=== PATIENT | female | born 1975 | race Caucasian/White ===

== ENCOUNTER 2022-07-12 05:44 | Day surgery (SDC) | payer BC, OTHER ==
[2022-07-07 16:20] VITALS: BMI 29.9
--- NOTE | 2022-07-11 15:09 | P.GSHP ---
History of Present Illness H&P Date: 07/11/22 47 yo female with a painful left renal stone in the left renal pelvis who comes for eswl. Alternatives have been discussed. She has previous eswl in 2015 - Constitutional Constitutional: Denies chills, Denies fever - EENT Eyes: denies blurred vision, denies pain Ears, nose, mouth and throat: Denies headache, Denies sore throat - Cardiovascular Cardiovascular: Denies chest pain, Denies shortness of breath - Respiratory Respiratory: Denies cough, Denies 7 - Gastrointestinal Gastrointestinal: Denies abdominal pain, Denies diarrhea, Denies nausea, Denies vomiting - Genitourinary (Female) Genitourinary: Denies dysuria, Denies hematuria - Genitourinary (Male) Genitourinary: Denies dysuria, Denies hematuria - Musculoskeletal Musculoskeletal: Denies myalgias - Integumentary Integumentary: Denies pruritus, Denies rash - Neurological Neurological: Denies numbness, Denies weakness - Psychiatric Psychiatric: Denies anxiety, Denies depression - Endocrine Endocrine: Denies fatigue, Denies weight change Past Medical History Past Medical History: Hypertension Additional Past Medical History / Comment(s): PAST HISTORY -HYPERTENSION, KIDNE Y STONE, History of Any Multi-Drug Resistant Organisms: None Reported Additional Past Surgical History / Comment(s): LITHOTRIPSY, COLONOSCOPY Past Anesthesia/Blood Transfusion Reactions: No Reported Reaction Smoking Status: Former smoker - Past Family History Mother Family Medical History: No Reported History Medications and Allergies Home Medications Medication Instructions Recorded Confirmed Type Ibuprofen [Motrin] 800 mg PO Q8HR PRN 04/14/15 07/07/22 History Acetaminophen Tab [Tylenol Tab] 1,000 mg PO Q6HR PRN 07/07/22 07/07/22 History HYDROcodone/APAP 7.5-325MG [[place] 1 tab PO Q4H PRN 07/07/22 07/07/22 History 7.5-325] Ketorolac [Toradol] 10 mg PO Q6HR PRN 07/07/22 07/07/22 History Multivitamins, Thera [Multivitamin 1 tab PO DAILY 07/09/22 07/09/22 History (formulary)] Allergies Allergy/AdvReac Type Severity Reaction Status Date / Time No Known Allergies Allergy Verified 07/07/22 15:52 Surgical - Exam - General well developed, well nourished, no distress - Eyes normal ocular movement, no icteric - ENT no hearing loss, no congestion - Neck no masses, trachea midline - Respiratory normal respiratory effort, clear to auscultation - Abdomen Abdomen: soft, non tender, no guarding, no rigid, no rebound - Integumentary no rash, no abnormal pigmentation - Neurologic no disoriented, no combative - Psychiatric oriented to time, oriented to person, oriented to place, speech is normal, memory intact Results - Imaging Abdominal x-ray: report reviewed, image reviewed CT scan - abdomen: report reviewed, image reviewed CT scan - pelvis: report reviewed, image reviewed Assessment and Plan Assessment: Impression: left renal stone, symptomatic Plan: eswl left
[2022-07-12] MEDS ORDERED: LIDOCAINE 1% (10MG/ML) FOR IV START INTRADERMA PRN (06:03)
[2022-07-12] MEDS ORDERED: LACTATED RINGERS 1,000 ML IV SCH (06:03)
--- NOTE | 2022-07-12 06:43 | XR ---
EXAMINATION TYPE: XR KUB DATE OF EXAM: 07/12/2022 COMPARISON: KUB 05/07/2015. HISTORY: Left renal stone, preop. TECHNIQUE: Supine single radiograph of the abdomen was obtained. FINDINGS: Small bowel demonstrates no evidence for dilatation or air fluid levels. Gas and fecal material is seen in non-distended colon. 1.5 cm calculus in the region of the left mid kidney with adjacent 3 mm calculus. No additional calcu li overlying the right kidney. Stable bilateral pelvic phleboliths. The lung bases are clear. The osseous structures are intact. IMPRESSION: 1. Overall nonobstructive bowel gas pattern. 2. Left renal calculi with largest measuring up to 1.5 cm.
[2022-07-12] MEDS ORDERED: LACTATED RINGERS 1,000 ML IV ONE (07:10)
[2022-07-12 07:16] VITALS: RESP 16; TEMP 97
[2022-07-12] MEDS ORDERED: LIDOCAINE 2% INJ 20 MG/ML (2 ML VIAL) ONE (07:21)
[2022-07-12] MEDS ORDERED: PROPOFOL 10 MG/ML 20 ML VIAL IV ONE (07:21)
[2022-07-12] MEDS ORDERED: KETAMINE 10 MG/ML 20 ML VIAL ONE (07:21)
[2022-07-12] MEDS ORDERED: MIDAZOLAM 2 MG/2 ML VIAL ONE (07:21)
--- NOTE | 2022-07-12 07:57 | P.OP ---
Date of Procedure: 07/12/22 Preoperative Diagnosis: Left renal stone Postoperative Diagnosis: Same Procedure(s) Performed: Extracorporeal shockwave lithotripsy, left, 2500 shocks at energy level IV Anesthesia: MAC Surgeon: Forrest Calvillo Pathology: none sent Condition: stable Disposition: PACU Indications for Procedure: The patient is 47. She has a history kidney stones. She has left flank pain with a 19 mm UPJ stone. She comes for shockwave lithotripsy. Alternatives have been discussed Description of Procedure: Patient brought to the operating suite. She's placed on the lithotripsy table in the supine position. With the compact Dornier delta 2 lithotripter after IV sedation a total of 2500 shocks are administered to fracture the stone. The stone which is fluoroscoped periodically appears to break. at the end of the procedure the patient is awakened and returned recovery room good condition. She'll be discharged home upon recovery and follow-up in the office next week with a KUB. Prescription of [place] given for passage of stone fragments. She tolerated procedure well.
[2022-07-12] MEDS ORDERED: IV FLUID CONTINUATION 1,000 ML IV ONE (08:07)
[2022-07-12 09:07] VITALS: BP 153/83; PULSE 57
== END 2022-07-12 09:29 | disposition home or self-care (01) ==
LOC: ORWHC2ENDO 05:44
PROVIDERS: ATTEND Urology
DX: N20.0 Calculus of kidney (principal); I10 Essential (primary) hypertension; Z87.891 Personal history of nicotine dependence; Z79.1 Long term (current) use of non-steroidal anti-inflammatories (NSAID); Z79.899 Other long term (current) drug therapy
CPT/HCPCS: 81025; 74018; 50590; J2250; J2704; J2001

== ENCOUNTER → 2022-07-19 | Outpatient (CLI) | payer OTHER ==
--- NOTE | 2022-07-19 10:40 | XR ---
EXAMINATION TYPE: XR KUB DATE OF EXAM: 07/19/2022 10:14 AM CLINICAL HISTORY: Ureteral calculus on left side, procedure done on Tuesday. TECHNIQUE: Supine KUB images of the abdomen are obtained. COMPARISON: None. FINDINGS: Very faint calcific density projects over the left upper quadrant just beneath the tip of t he left 12th rib. Of note, this is more lateral than on prior radiograph. The previously seen left re nal calcifications are no longer present. Stable pelvic phleboliths. Large amount of stool throughout the entire colon. No visceromegaly or pneumoperitoneum. No osseous destructive lesions. The lung bas es are not visualized. IMPRESSION: The largest left renal calcification is no longer present. A very faint calcific density projects ove r the left kidney slightly more lateral than previous. Unclear if this represents a residual renal ca lculus.
== END ==
LOC: HEALTHACC 09:56
PROVIDERS: ATTEND Urology
DX: N20.1 Calculus of ureter (principal); F17.200 Nicotine dependence, unspecified, uncomplicated
CPT/HCPCS: 74018

== ENCOUNTER → 2022-10-27 | Outpatient (CLI) | payer OTHER ==
--- NOTE | 2022-10-28 08:14 | MM ---
Reason for Exam: Screening (asymptomatic). Last mammogram was performed 7 year(s) and 3 month(s) ago. Patient History: Menarche at age 14. Patient has no children. Patient used Hormonal Contraceptives for 2 years. Maternal grandmother had breast cancer, age 60. Last menstrual period: 06/10/2022 Risk Values: Valerie 5 year model risk: 0.9%. NCI Lifetime model risk: 9.5%. Prior Study Comparison: 07/23/2015 Bilateral Screening Mammogram, [facility]. 07/30/2015 Bilateral Diagnostic Mammogram, [facility]. Tissue Density: The breast tissue is heterogeneously dense. This may lower the sensitivity of mammography. Findings: Analyzed By CAD. Benign-appearing bilateral axillary lymph nodes are redemonstrated. There is no suspicious group of microcalcifications or new suspicious mass in either breast. Overall Assessment: Negative, BI-RAD 1 Management: Screening Mammogram of both breasts in 1 year. Some advise bilateral breast ultrasound surveillance in patients with background dense tissue. Patient should continue monthly self-breast exams. A clinical breast exam by your physician is recommended on an annual basis. This exam should not preclude additional follow-up of suspicious palpable abnormalities. Note on Valerie scores and lifetime risk: 1. A Valerie score greater than 3% is considered moderate risk. If this is the case, consider specialist referral to assess eligibility for a risk reducing agent. 2. If overall lifetime risk for the development of breast cancer is 20% or higher, the patient may qualify for future screening with alternating mammogram and breast MRI. Electronically signed and approved by: Roger Singer M.D.
== END | disposition home or self-care (01) ==
LOC: RADMAMWWP 12:06
PROVIDERS: ATTEND Family Medicine
DX: Z12.31 Encounter for screening mammogram for malignant neoplasm of breast (principal); Z80.3 Family history of malignant neoplasm of breast
CPT/HCPCS: 77063; 77067

== ENCOUNTER 2023-02-19 09:34 | Emergency (ER) | payer OTHER ==
[2023-02-19 09:53] VITALS: RESP 18
[2023-02-19] MEDS ORDERED: SODIUM CHLORIDE 0.9% 1,000 ML IV STA (10:13)
[2023-02-19] MEDS ORDERED: ONDANSETRON 4 MG/2 ML VIAL IVP STA (10:13)
[2023-02-19] MEDS ORDERED: KETOROLAC 15 MG/ML 1 ML VIAL IVP STA (10:13)
--- NOTE | 2023-02-19 10:19 | ED ---
General Adult HPI - General Chief complaint: Abdominal Pain Stated complaint: abd pain Time Seen by Provider: 02/19/23 10:05 Source: patient, RN notes reviewed, old records reviewed Mode of arrival: ambulatory Limitations: no limitations - History of Present Illness Initial comments: Tearful 47-year-old female presents to the emergency room with complaints of left flank pain radiating into her left groin for the past 3 days. Patient states that she did have pain about a month ago only lasting couple of days and then resolved for a couple weeks. Does have some nausea no vomiting. No fevers. Does have a history of kidney stones. States not having regular periods thinks may be perimenopausal. Last menstrual period 2 months ago lasting only a couple of days. States no chance of . -: days(s) (3) Location: left (flank and groin) Radiation: extremity (left leg) Severity scale (1-10): 10 Quality: stabbing, sharp, constant Consistency: constant Improves with: none Associated Symptoms: denies other symptoms Treatments Prior to Arrival: none - Related Data Home Medications Medication Instructions Recorded Confirmed Ibuprofen [Motrin] 800 mg PO Q8HR PRN 04/14/15 07/07/22 Acetaminophen Tab [Tylenol Tab] 1,000 mg PO Q6HR PRN 07/07/22 07/07/22 HYDROcodone/APAP 7.5-325MG [[place] 1 tab PO Q4H PRN 07/07/22 07/07/22 7.5-325] Ketorolac [Toradol] 10 mg PO Q6HR PRN 07/07/22 07/07/22 Multivitamins, Thera [Multivitamin 1 tab PO DAILY 07/09/22 07/09/22 (formulary)] Previous Rx's Medication Instructions Recorded HYDROcodone/APAP 5-325MG [[place] 1 tab PO Q4HR PRN #10 tab 07/12/22 5-325] Amoxic-Pot Clav 875-125Mg 1 tab PO Q12HR 10 Days #20 tab 02/19/23 [Augmentin 875-125] Ketorolac [Toradol] 10 mg PO Q8HR #15 tab 02/19/23 Allergies Allergy/AdvReac Type Severity Reaction Status Date / Time No Known Allergies Allergy Verified 07/12/22 06:46 Review of Systems ROS Statement: Those systems with pertinent positive or pertinent negative responses have been documented in the HPI. ROS Other: All systems not noted in ROS Statement are negative. Past Medical History Past Medical History: Hypertension Additional Past Medical History / Comment(s): PAST HISTORY -HYPERTENSION, KIDNEY STONE, History of Any Multi-Drug Resistant Organisms: None Reported Additional Past Surgical History / Comment(s): LITHOTRIPSY, COLONOSCOPY Past Anesthesia/Blood Transfusion Reactions: No Reported Reaction Past Psychological History: No Psychological Hx Reported Smoking Status: Former smoker Past Alcohol Use History: Occasional Past Drug Use History: None Reported - Past Family History Mother Family Medical History: No Reported History General Exam Limitations: no limitations General appearance: alert Head exam: Present: atraumatic, normocephalic Eye exam: Absent: scleral icterus, conjunctival injection, periorbital swelling ENT exam: Present: mucous membranes moist Neck exam: Present: full ROM. Absent: meningismus Respiratory exam: Absent: respiratory distress, accessory muscle use Cardiovascular Exam: Present: regular rate GI/Abdominal exam: Present: soft, tenderness (LLQ), normal bowel sounds. Absent: distended, guarding, rebound, rigid Extremities exam: Present: full ROM, normal capillary refill. Absent: tenderness, pedal edema Back exam: Present: CVA tenderness (L) Neurological exam: Present: alert, oriented X3 Psychiatric exam: Present: normal affect, normal mood (tearful) Skin exam: Present: warm, dry, normal color. Absent: cyanosis, diaphoretic, petechiae, pallor Course Vital Signs 02/19/23 02/19/23 09:49 12:34 Temperature 97.8 F 97.9 F Pulse Rate 96 80 Respiratory 18 18 Rate Blood Pressure 163/80 152/78 O2 Sat by Pulse 97 98 Oximetry Medical Decision Making - Medical Decision Making Was pt. sent in by a medical professional or institution (, PA, JEWELRY DIPPER, urgent care, hospital, or retirement...) When possible be specific @ -No Did you speak to anyone other than the patient for history (EMS, parent, family, police, friend...)? What history was obtained from this source @ -No Did you review nursing and triage notes (agree or disagree)? Why? @ -I reviewed and agree with nursing and triage notes Were old charts reviewed (outside hosp., previous admission, EMS record, old EKG, old radiological studies, urgent care reports/EKG's, retirement records)? Report findings @ -No old charts were reviewed Differential Diagnosis (chest pain, altered mental status, abdominal pain women, abdominal pain men, vaginal bleeding, weakness, fever, dyspnea, syncope, headache, dizziness, GI bleed, back pain, seizure, CVA, palpatations, mental h ealth, musculoskeletal)? @ -Differential Abdominal Pain Women: Appendicitis, Cholecystitis, diverticulosis, ischemic bowel, pancreatitis, hepatitis, UTI, gastroenteritis, AAA, incarcerated hernia, bowel obstruction, constipation, inflammatory bowel, hepatitis, peptic ulcer disease, splenic infarction, perforated viscus, vulvitis, ovarian torsion, PID, kidney stone, placenta abruption, this is not meant to be an all-inclusive list EKG interpreted by me (3pts min.). @ -n/a X-rays interpreted by me (1pt min.). @ -None done CT interpreted by me (1pt min.). @ -yes, CT interpreted by me shows evidence of a 1 cm left renal calculi. U/S interpreted by me (1pt. min.). @ -None done What testing was considered but not performed or refused? (CT, X-rays, U/S, labs)? Why? @ -None What meds were considered but not given or refused? Why? @ -None Did you discuss the management of the patient with other professionals (john liu i.colin Marques, PA, JEWELRY DIPPER, lab, RT, psych nurse, social welfare administrator, big data analytics lead, teacher, chief medical officer, case repairer)? Give summary @ -No Was smoking cessation discussed for >3mins.? @ -No Was critical care preformed (if so, how long)? @ -No Were there social determinants of health that impacted care today? How? (Homelessness, low income, unemployed, alcoholism, drug addiction, transportation, low edu. Level, literacy, decrease access to med. care, longterm, rehab)? @ -No Was there de-escalation of care discussed even if they declined (Discuss DNR or withdrawal of care, Hospice)? DNR status @ -No What co-morbidities impacted this encounter? (DM, HTN, Smoking, COPD, CAD, Cancer, CVA, ARF, Chemo, Hep., AIDS, mental health diagnosis, sleep apnea, morbid obesity)? @ -Kidney stone, hypertension Was patient admitted / discharged? Hospital course, mention meds given and route, prescriptions, significant lab abnormalities, going to OR and other pertinent info. @ -Discharged Tearful 47-year-old female presents to the emergency room with complaints of left flank pain radiating into her left groin for the past 3 days. Patient states that she did have pain about a month ago only lasting couple of days and then resolved for a couple weeks. Does have some nausea no vomiting. No fevers. Does have a history of kidney stones. States not having regular periods thinks may be perimenopausal. Last menstrual period 2 months ago lasting only a couple of days. States no chance of . Labs show no evidence of leukocytosis. BUN/creatinine are within normal limits. Urinalysis shows large blood with large leukocyte esterase and white blood cells. CT interpreted by me shows evidence of a 1 cm left renal calculi. Radiologist interpretation a 1.2 x 0.9 cm stone impacted at the left UPJ with mild to moderate obstructive uropathy. Additional 5 mm nonobstructive left lower pole renal calculus. Colonic diverticulosis greatest in the sigmoid colon. Mild pericolonic fat stranding along the mid descending colon that may reflect mild acute diverticulitis. No abscess or free air. Mild hepatic steatosis. Results discussed with patient. States she does have a history of kidney stones most recently in October and seen Dr. Barcenas. Patient states pain has improved after Toradol and IV fluids. She was treated for diverticulitis with Augmentin. Patient is agreeable to discharge. Strict return parameters were discussed. Patient afebrile vital signs are stable. Case discussed with Dr. Velazco Undiagnosed new problem with uncertain prognosis? @ -No Drug Therapy requiring intensive monitoring for toxicity (Heparin, Nitro, Insulin, Cardizem)? @ -No Were any procedures done? @ -No Diagnosis/symptom? @ -Left renal calculi, diverticulitis Acute, or Chronic, or Acute on Chronic? @ -Acute Uncomplicated (without systemic symptoms) or Complicated (systemic symptoms)? @ -uncomplicated Side effects of treatment? @ -No Exacerbation, Progression, or Severe Exacerbation? @ -No Poses a threat to life or bodily function? How? (Chest pain, [place], SD, pneumonia, PE, COPD, DKA, ARF, appy, cholecystitis, CVA, Diverticulitis, Homicidal, Suicidal, threat to staff... and all critical care pts) @ -No - Lab Data Result diagrams: 02/19/23 10:20 02/19/23 10:20 Lab Results 02/19/23 02/19/23 02/19/23 Range/Units 10:20 10:20 10:20 WBC 9.1 (3.8-10.6) k/uL RBC 4.25 (3.80-5.40) m/uL Hgb 13.6 (11.4-16.0) gm/dL Hct 39.7 (34.0-46.0) % MCV 93.5 (80.0-100.0) fL MCH 31.9 (25.0-35.0) pg MCHC 34.1 (31.0-37.0) g/dL RDW 12.5 (11.5-15.5) % Plt Count 399 (150-450) k/uL MPV 7.2 Neutrophils % 73 % Lymphocytes % 21 % Monocytes % 4 % Eosinophils % 2 % Basophils % 1 % Neutrophils # 6.6 (1.3-7.7) k/uL Lymphocytes # 1.9 (1.0-4.8) k/uL Monocytes # 0.3 (0-1.0) k/uL Eosinophils # 0.1 (0-0.7) k/uL Basophils # 0.1 (0-0.2) k/uL Sodium 135 L (137-145) mmol/L Potassium 4.2 (3.5-5.1) mmol/L Chloride 98 (98-107) mmol/L Carbon Dioxide 26 (22-30) mmol/L Anion Gap 11 mmol/L BUN 17 (7-17) mg/dL Creatinine 0.54 (0.52-1.04) mg/dL Est GFR (CKD-EPI)AfAm >90 (>60 ml/min/1.73 sqM) Est GFR (CKD-EPI)NonAf >90 (>60 ml/min/1.73 sqM) Glucose 146 H (74-99) mg/dL Plasma Lactic Acid [place] (0.7-2.0) mmol/L Calcium 9.4 (8.4-10.2) mg/dL Total Bilirubin 0.8 (0.2-1.3) mg/dL AST 48 H (14-36) U/L ALT 38 H (4-34) U/L Alkaline Phosphatase 55 (38-126) U/L Total Protein 7.7 (6.3-8.2) g/dL Albumin 4.6 (3.5-5.0) g/dL Amylase 51 (30-110) U/L Lipase 61 (23-300) U/L Urine Color Yellow Urine Appearance Cloudy H (Clear) Urine pH 5.0 (5.0-8.0) Ur Specific [place] 1.020 (1.001-1.035) Urine Protein Trace H (Negative) Urine Glucose (UA) Negative (Negative) Urine Ketones Negative (Negative) Urine Blood Large H (Negative) Urine Nitrite Negative (Negative) Urine Bilirubin Negative (Negative) Urine Urobilinogen <2.0 (<2.0) mg/dL Ur Leukocyte Esterase Large H (Negative) Urine RBC 83 H (0-5) /hpf Urine WBC 36 H (0-5) /hpf Ur Squamous Epith Cells 24 H (0-4) /hpf Hyaline Casts 4 H (0-2) /lpf Urine Mucus Occasional H (None) /hpf Urine HCG, Qual (Not Detectd) 02/19/23 02/19/23 Range/Units 10:20 10:20 WBC (3.8-10.6) k/uL RBC (3.80-5.40) m/uL Hgb (11.4-16.0) gm/dL Hct (34.0-46.0) % MCV (80.0-100.0) fL MCH (25.0-35.0) pg MCHC (31.0-37.0) g/dL RDW (11.5-15.5) % Plt Count (150-450) k/uL MPV Neutrophils % % Lymphocytes % % Monocytes % % Eosinophils % % Basophils % % Neutrophils # (1.3-7.7) k/uL Lymphocytes # (1.0-4.8) k/uL Monocytes # (0-1.0) k/uL Eosinophils # (0-0.7) k/uL Basophils # (0-0.2) k/uL Sodium (137-145) mmol/L Potassium (3.5-5.1) mmol/L Chloride (98-107) mmol/L Carbon Dioxide (22-30) mmol/L Anion Gap mmol/L BUN (7-17) mg/dL Creatinine (0.52-1.04) mg/dL Est GFR (CKD-EPI)AfAm (>60 ml/min/1.73 sqM) Est GFR (CKD-EPI)NonAf (>60 ml/min/1.73 sqM) Glucose (74-99) mg/dL Plasma Lactic Acid [place] 1.5 (0.7-2.0) mmol/L Calcium (8.4-10.2) mg/dL Total Bilirubin (0.2-1.3) mg/dL AST (14-36) U/L ALT (4-34) U/L Alkaline Phosphatase (38-126) U/L Total Protein (6.3-8.2) g/dL Albumin (3.5-5.0) g/dL Amylase (30-110) U/L Lipase (23-300) U/L Urine Color Urine Appearance (Clear) Urine pH (5.0-8.0) Ur Specific [place] (1.001-1.035) Urine Protein (Negative) Urine Glucose (UA) (Negative) Urine Ketones (Negative) Urine Blood (Negative) Urine Nitrite (Negative) Urine Bilirubin (Negative) Urine Urobilinogen (<2.0) mg/dL Ur Leukocyte Esterase (Negative) Urine RBC (0-5) /hpf Urine WBC (0-5) /hpf Ur Squamous Epith Cells (0-4) /hpf Hyaline Casts (0-2) /lpf Urine Mucus (None) /hpf Urine HCG, Qual Not Detected (Not Detectd) Disposition Clinical Impression: Kidney stone on left side, Diverticulitis Disposition: HOME SELF-CARE Condition: Good Instructions (If sedation given, give patient instructions): Diverticulitis (ED), Kidney Stones (ED), Diverticulitis Diet (ED) Additional Instructions: Strain all urine. Follow-up with urology on Tuesday. Take antibiotics for diverticulitis. Follow diverticulitis diet. Return to the emergency room with any new or concerning symptoms. Prescriptions: Amoxic-Pot Clav 875-125Mg [Augmentin 875-125] 1 tab PO Q12HR 10 Days #20 tab Ketorolac [Toradol] 10 mg PO Q8HR #15 tab Is patient prescribed a controlled substance at d/c from ED?: No Referrals: Johanny Butler MD [Primary Care Provider] - 1-2 days Forerst Calvillo MD [STAFF PHYSICIAN] - 1-2 days Time of Disposition: 12:23
[2023-02-19 10:45] LABS: Basophils # (A) 0.1 k/uL (0-0.2); Basophils % (A) 1 %; Eosinophils # (A) 0.1 k/uL (0-0.7); Eosinophils % (A) 2 %; HCT 39.7 % (34.0-46.0); HGB 13.6 gm/dL (11.4-16.0); Lymphocytes # (A) 1.9 k/uL (1.0-4.8); Lymphocytes % (A) 21 %; MCH 31.9 pg (25.0-35.0); MCHC 34.1 g/dL (31.0-37.0); MCV 93.5 fL (80.0-100.0); Mean Platelet Volume 7.2; Monocytes # (A) 0.3 k/uL (0-1.0); Monocytes % (A) 4 %; Neutrophils # (A) 6.6 k/uL (1.3-7.7); Neutrophils % (A) 73 %; Platelet Count 399 k/uL (150-450); RBC 4.25 m/uL (3.80-5.40); RDW 12.5 % (11.5-15.5); WBC 9.1 k/uL (3.8-10.6)
[2023-02-19 10:56] LABS: ALT 38 U/L (4-34); African American GFR (CKD) >90 (>60 ml/min/1.73 sqM); Albumin 4.6 g/dL (3.5-5.0); Amylase 51 U/L (30-110); Anion Gap 11 mmol/L; Blood Urea Nitrogen 17 mg/dL (7-17); Calcium 9.4 mg/dL (8.4-10.2); Carbon Dioxide 26 mmol/L (22-30); Chloride 98 mmol/L (98-107); Glucose 146 mg/dL (74-99); Lipase 61 U/L (23-300); Non-African American GFR(CKD) >90 (>60 ml/min/1.73 sqM); Sodium 135 mmol/L (137-145); Total Bilirubin 0.8 mg/dL (0.2-1.3); Total Protein 7.7 g/dL (6.3-8.2)
[2023-02-19 11:00] LABS: Potassium 4.2 mmol/L (3.5-5.1)
[2023-02-19 11:01] LABS: AST 48 U/L (14-36); Alkaline Phosphatase 55 U/L (38-126)
--- NOTE | 2023-02-19 11:42 | CT ---
EXAMINATION TYPE: CT abdomen pelvis wo con DATE OF EXAM: 02/19/2023 COMPARISON: None HISTORY: 47-year-old female Left sided abdominal pain radiating into back. CT DLP: 697.8 mGycm. Automated exposure control for dose reduction was used. TECHNIQUE: Contiguous axial scanning of the abdomen and pelvis without IV contrast. Coronal and sagit belgica reconstructions performed. FINDINGS: LUNG BASES: No significant abnormality is appreciated. LIVER/GB: There may be mild fatty infiltration of liver. Gallbladder within normal limits. PANCREAS: No significant abnormality is seen. SPLEEN: No significant abnormality is seen. ADRENALS: Mild thickening of the left adrenal gland without discrete nodularity. KIDNEYS: 1.2 x 0.9 cm stone left UPJ with [id number] hydronephrosis. Additional 5 mm nonobstruc tive left lower pole renal calculus. Fat stranding in the region of the renal sinus, likely due to so me hilar sinus backflow. BOWEL: Scattered colonic diverticulosis. Greatest in the sigmoid colon. There may be mild pericolonic fat stranding along the mid descending colon, axial image 77. Normal appendix. LYMPH NODES: No greater than 1cm abdominal or pelvic lymph nodes are appreciated. PELVIS: No gross abnormality seen. OSSEOUS STRUCTURES: No significant abnormality is seen. OTHER: No significant additional abnormality is seen. IMPRESSION: 1. A 1.2 x 0.9 cm stone impacted at the left UPJ with [id number] obstructive uropathy. 2. Additional 5 mm nonobstructive left renal calculus. 3. Colonic diverticulosis greatest in the sigmoid colon. However, there is mild pericolonic fat stra nding along the mid descending colon that may reflect mild acute diverticulitis. No abscess or free a ir. 4. Mild hepatic steatosis.
[2023-02-19 11:54] LABS: Appearance,Urine Cloudy (Clear); Bilirubin,Urine Negative (Negative); Blood,Urine Large (Negative); Glucose,Urine (UA) Negative (Negative); Hyaline Casts,Urine 4 /lpf (0-2); Ketones,Urine Negative (Negative); Leukocyte Esterase,Urine Large (Negative); Mucus,Urine Occasional /hpf; Nitrite,Urine Negative (Negative); Protein,Urine Trace (Negative); RBC,Urine 83 /hpf (0-5); Squamous Epithelial Cell,Urine 24 /hpf (0-4); Urobilinogen,Urine <2.0 mg/dL (<2.0); WBC,Urine 36 /hpf (0-5)
[2023-02-19 11:58] LABS: Color,Urine Yellow
[2023-02-19 12:35] VITALS: BP 152/78; PULSE 80; TEMP 97.9
== END 2023-02-19 12:36 | disposition home or self-care (01) ==
LOC: EC 09:34
DX: K57.32 Diverticulitis of large intestine without perforation or abscess without bleeding (principal); N20.0 Calculus of kidney; K76.0 Fatty (change of) liver, not elsewhere classified; I10 Essential (primary) hypertension; Z87.891 Personal history of nicotine dependence; Z87.442 Personal history of urinary calculi
CPT/HCPCS: 36415; 80053; 82150; 83605; 83690; 85025; 81001; 81025; 74176; 99284; 96374; 96375; 96361 ×2; J2405; J1885

== ENCOUNTER → 2023-03-09 | Outpatient (CLI) | payer OTHER ==
[2023-03-09 15:50] LABS: Blood Urea Nitrogen 15.6 mg/dL (9.0-27.0); Calcium 9.9 mg/dL (8.7-10.3); Carbon Dioxide 24.7 mmol/L (21.6-31.8); Chloride 100 mmol/L (96-109); Glucose 117 mg/dL (70-110); Potassium 4.4 mmol/L (3.5-5.5); Sodium 137 mmol/L (135-145)
[2023-03-09 16:16] LABS: Appearance,Urine Cloudy (Clear); Bilirubin,Urine Negative (Negative); Blood,Urine Small (Negative); Color,Urine Yellow (Yellow); Ketones,Urine Negative (Negative); Nitrite,Urine Negative (Negative); Specific Gravity,Urine 1.021 (1.001-1.030); Urobilinogen,Urine 0.2 E.U./DL
[2023-03-09 16:33] LABS: Basophils # (A) 0.04 X 10*3/uL (0.00-0.10); Basophils % (A) 0.5 %; Eosinophils # (A) 0.18 X 10*3/uL (0.04-0.35); Eosinophils % (A) 2.1 %; HCT 41.3 % (37.2-46.3); HGB 13.3 d/dL (12.0-15.0); Lymphocytes # (A) 1.41 X 10*3/uL (0.90-5.00); Lymphocytes % (A) 16.8 %; MCH 31.3 pg (27.0-32.0); MCHC 32.2 d/dL (32.0-37.0); MCV 97.2 FL (80.0-97.0); Mean Platelet Volume 9.3 FL (9.5-12.2); Monocytes # (A) 0.38 X 10*3/uL (0.20-1.00); Monocytes % (A) 4.5 %; NRBC Per 100 WBC 0 X 10*3/uL (0.00-0.01); Neutrophils # (A) 6.37 X 10*3/uL (1.80-7.70); Neutrophils % (A) 75.9 %; Platelet Count 341 X 10*3/uL (140-440); RBC 4.25 X 10*6/uL (4.10-5.20); RDW 12.5 % (11.5-14.5)
[2023-03-09 16:41] LABS: Bacteria,Urine 1+ (None Seen)
== END | disposition home or self-care (01) ==
LOC: LABPAT 10:15
PROVIDERS: ATTEND Urology
DX: Z01.812 Encounter for preprocedural laboratory examination (principal); N20.1 Calculus of ureter; R31.29 Other microscopic hematuria
CPT/HCPCS: 36415; 80048; 81001; 85025; 87086

== ENCOUNTER → 2023-07-27 | Outpatient (CLI) | payer OTHER ==
--- NOTE | 2023-07-28 10:55 | US ---
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 Transabdominal sonographic images of the pel vis were acquired. Transvaginal sonographic images were medically necessary to better assess the fol lowing anatomy: Uterus Date of LMP: march 2023 EXAM MEASUREMENTS: Uterus: 6.8x3.0x3.3 cm Endometrial Stripe: 0.5 cm Right Ovary: 2.3x2.1x1.5 cm Left Ovary: 2.0x2.4x1.3 cm 1. Uterus: Anteverted. 2 hypoechoic regions noted with internal vascularity RIGHT cervix: Possibly partially cystic lesion measuring 1.7x1.7x1.3cm. low-level echoes could reflec t debris. However, there is some internal vascularity also present. RIGHT lower uterine segment: 2.5x1.7x2.6cm, etiology unclear. Possible focal fibroid or adenomyoma. 2. Endometrium: wnl 3. Right Ovary: wnl 4. Left Ovary: wnl 5. Bilateral Adnexa: Obscured by overlying bowel gas 6. Posterior cul-de-sac: wnl Plastic Injection Mold Maker notes: exam slightly limited by bowel gas IMPRESSION: 1. The etiology of a couple lesions within the cervix and lower uterine segment is unclear. The large st in the lower uterine segment measures 2.6 cm and may represent a focal fibroid or adenomyoma. The 1.7 cm lesion in the right cervix could represent a large debris filled nabothian cyst. However, the presence of internal vascular flow is usual. Recommend further evaluation with female pelvic MRI. Cor relate with findings on Pap smear as well. 2. Endometrial stripe thickness of 5 mm.
== END | disposition home or self-care (01) ==
LOC: RADUSWWP 15:22
PROVIDERS: ATTEND Obstetrics & Gynecology
DX: N85.8 Other specified noninflammatory disorders of uterus (principal); N91.4 Secondary oligomenorrhea; R87.629 Unspecified abnormal cytological findings in specimens from vagina
CPT/HCPCS: 76830; 76856